=== PATIENT | female | born 1995 | race Caucasian/White ===

== ENCOUNTER 2019-01-18 11:26 | Emergency (ER) | payer SELFPAY ==
[2019-01-18 11:52] VITALS: BMI 47.9
[2019-01-18 14:47] LABS: BASO % 0.5 % (0-2.0); EOS % 1.6 % (0-4.5); HEMATOCRIT 41.2 % (32.4-45.2); HEMOGLOBIN 13.4 GM/dL (10.7-15.3); LYMPH % 23.5 % (8-40); MCHC 32.5 g/dl (32.0-36.0); MEAN PLT VOLUME 7.9 fl (7.5-11.1); MONO % 4.9 % (3.8-10.2); NEUT % 69.5 % (42.8-82.8); PLATELET COUNT 332 K/MM3 (134-434); RBC 4.96 M/mm3 (3.60-5.2); RDW 15.4 % (11.6-15.6); URINE APPEARANCE CLOUDY; URINE BILIRUBIN NEGATIVE (NEGATIVE); URINE COLOR YELLOW; URINE GLUCOSE (UA) NEGATIVE (NEGATIVE); URINE KETONE NEGATIVE (NEGATIVE); URINE LEUK ESTERASE NEGATIVE (NEGATIVE); URINE NITRITE NEGATIVE (NEGATIVE); URINE PROTEIN NEGATIVE (NEGATIVE); URINE UROBILINOGEN 0.2 mg/dL (0.2-1.0); WHITE BLOOD COUNT 9.9 K/mm3 (4.0-10.0)
--- NOTE | 2019-01-18 14:53 | PDOC ---
History of Present Illness - General Chief Complaint: Pain Stated Complaint: ABD. PAIN Time Seen by Provider: 01/18/19 13:28 History Source: Patient Exam Limitations: Clinical Condition - History of Present Illness Initial Comments: 01/18/19 15:59 Patient with no significant past medical history presented with complaint of one -week history of left pelvic and lower abdominal pain which she described as cramping pain. Patient also reported urinary frequency and burning with urination. Denies vaginal discharge or bleeding. Denies nausea, vomiting, dizziness, fever or chills. Denies any other symptoms Is this a multiple visit Asthma Patient?: No Timing/Duration: 1 week Past History - Past Medical History Allergies/Adverse Reactions: Allergies Allergy/AdvReac Type Severity Reaction Status Date / Time No Known Allergies Allergy Verified 01/18/19 11:52 Home Medications: Ambulatory Orders Nitrofurantoin Monohyd/M-Cryst [Macrobid -] 100 mg PO BID #14 capsule 01/18/19 COPD: No Other medical history: OVARIAN CYST - Psycho Social/Smoking Cessation Hx Smoking History: Former smoker Have you smoked in the past 12 months: No Information on smoking cessation initiated: No Review of Systems - Review of Systems Able to Perform ROS?: Yes Is the patient limited Guamanian proficient: No Constitutional: No: Malaise, Weakness HEENTM: No: Symptoms Reported, Blurred Vision, Recent change in vision Respiratory: No: Symptoms reported Cardiac (ROS): No: Symptoms Reported ABD/GI: No: Nausea, Vomiting : Yes: Symptoms Reported, See HPI, Burning, Frequency, Urgency. No: Discharge , Flank Pain, Hematuria Musculoskeletal: No: Symptoms Reported Integumentary: No: Symptoms Reported Neurological: No: Symptoms reported All Other Systems: Reviewed and Negative *Physical Exam - Vital Signs Last Vital Signs Temp Pulse Resp BP Pulse Ox 98.5 F 98 H 18 139/83 99 01/18/19 11:48 01/18/19 11:48 01/18/19 11:48 01/18/19 11:48 01/18/19 11:48 - Physical Exam Comments: 01/18/19 16:02 GENERAL: Well developed, well nourished. Awake and alert. No acute distress. HEENT: Normocephalic, atraumatic. PERRLA, EOMI. No conjunctival pallor. Sclera are non-icteric. Moist mucous membranes. Oropharynx is clear. NECK: Supple. Full ROM. CARDIOVASCULAR: Regular rate and rhythm. No murmurs, rubs, or gallops. Distal pulses are 2+ and symmetric. PULMONARY: No evidence of respiratory distress. Lungs clear to auscultation bilaterally. No wheezing, rales or rhonchi. ABDOMINAL: Soft. left pelvic pain. Non-distended. No rebound or guarding. No organomegaly. Normoactive bowel sounds. MUSCULOSKELETAL Normal range of motion at all joints. SKIN: Warm and dry. Normal capillary refill. No rashes. No jaundice. NEUROLOGICAL: Alert, awake, appropriate. Gait is normal without ataxia. PSYCHIATRIC: Cooperative. Good eye contact. Appropriate mood General Appearance: Yes: Nourished, Appropriately Dressed. No: Apparent Distress ED Treatment Course - LABORATORY CBC & Chemistry Diagram: 01/18/19 14:27 01/18/19 14:27 - ADDITIONAL ORDERS Additional order review: Laboratory Results 01/18/19 01/18/19 14:27 14:27 Urine Color Yellow Urine Appearance Cloudy Urine pH 7.0 Ur Specific [place] 1.024 Urine Protein Negative Urine Glucose (UA) Negative Urine Ketones Negative Urine Blood Negative Urine Nitrite Negative Urine Bilirubin Negative Urine Urobilinogen 0.2 Ur Leukocyte Esterase Negative Urine HCG, Qual Negative 01/18/19 14:27 RBC 4.96 MCV 83.0 MCHC 32.5 RDW 15.4 MPV 7.9 Neutrophils % 69.5 Lymphocytes % 23.5 Monocytes % 4.9 Eosinophils % 1.6 Basophils % 0.5 - RADIOLOGY Radiology Studies Ordered: Category Date Time Status TRANSVAGINAL ULTRASOUND US [US] Stat Ultrasound 01/18/19 14:22 Ordered Medical Decision Making - Medical Decision Making 01/18/19 16:00 Patient with no significant past medical history presented with complaint of one -week history of left pelvic and lower abdominal pain which she described as cramping pain. Patient also reported urinary frequency and burning with urination. Denies vaginal discharge or bleeding. Denies nausea, vomiting, dizziness, fever or chills. Denies any other symptoms Exam significant for moderate tenderness to left pelvic region and left lower quadrant without guarding or rebound otherwise unremarkable exam. CBC, CMP and lipase level unremarkable. UA within normal limits. GC, chlamydia , syphilis and HIV labs ordered per patient request. 01/18/19 17:55 CBC and chemistry leg were unremarkable. Pelvic ultrasound shows no acute pathology. HIV negative. GC and Chlamydia and syphilis test pending. UA with no acute abnormality but given patient with complaint of dysuria with urinary frequency and burning with urination, patient will be started on Macrobid antibiotics pending urine culture results with [employer] INSPECTOR follow-up. Results discussed with patient and patient stable for discharge Discharge - Discharge Information Problems reviewed: Yes Clinical Impression/Diagnosis: Pelvic pain, Dysuria Condition: Stable Disposition: HOME - Admission No - Additional Discharge Information Prescriptions: Nitrofurantoin Monohyd/M-Cryst [Macrobid -] 100 mg PO BID #14 capsule - Follow up/Referral Referrals: Hernando Bearden MD [Staff Physician] - - Patient Discharge Instructions Patient Printed Discharge Instructions: DI for Dysuria -- Adult, DI for Pelvic Pain Additional Instructions: Your labwork and ultrasound is normal. Your urine is negative. Take medication as prescribed. Increase fluid intake. Follow-up with referred [facility] TRUING INSPECTOR for pelvic pain. You will be contacted with urine culture results - Post Discharge Activity
[2019-01-18 15:26] LABS: ALBUMIN 3.8 g/dl (3.4-5.0); BILIRUBIN,TOTAL 0.4 mg/dL (0.2-1); BLOOD UREA NITROGEN 13.6 mg/dL (7-18); CALCIUM 8.7 mg/dL (8.5-10.1); CREATININE 0.8 mg/dL (0.55-1.3); POTASSIUM 4.7 mmol/L (3.5-5.1); TOT PROT 7.4 g/dl (6.4-8.2)
[2019-01-18 17:04] VITALS: BP 125/68; PULSE 71; TEMP 98
== END 2019-01-18 17:28 | disposition home or self-care (01) ==
LOC: JER 11:26
DX: R30.0 Dysuria (principal); Z11.3 Encounter for screening for infections with a predominantly sexual mode of transmission
CPT/HCPCS: 36415; 76830-TC; 80053; 81003; 84703; 85025; 86593; 87077; 87086; 87389; 87491; 87591; 99283-25